=== PATIENT | male | born 1990 | race American Indian/Alaskan Native ===

== ENCOUNTER 2019-02-08 17:23 | Emergency (ER) | payer SELFPAY ==
[2019-02-08] MEDS ORDERED: NACL 0.9% 1000 ML 1,000 ML IV ONE (18:55)
--- NOTE | 2019-02-08 18:56 | Emergency Department Report ---
ED General Adult HPI - General Chief complaint: Seizure Stated complaint: SEIZURES Time Seen by Provider: 02/08/19 18:17 Source: patient, EMS (ems notes not available at time of chart dictation), RN notes reviewed Mode of arrival: Stretcher - History of Present Illness Initial comments: This is a 28-year-old gentleman. The patient is not known to this provider previously. The patient and family state that he has no chronic medical conditions. The patient states that he doesn't know what happened to him today. He has no recollection of today's events. Apparently, he passed out or lost consciousness. His mother reports that he was in his usual state of health today. The patient states that he has no headache, neck pain, chest pain abdominal pain or shortness of breath. He denies DVT, pulmonary embolus or risk factors. As per nursing documentation, the patient may have had a convulsive event. The patient is quite anxious, but insists that he is not having physical pain. -: Sudden Consistency: now resolved Improves with: none Worsens with: none - Related Data Allergies Allergy/AdvReac Type Severity Reaction Status Date / Time No Known Allergies Allergy Unverified 02/08/19 18:29 ED Review of Systems ROS: Stated complaint: SEIZURES Other details as noted in HPI Constitutional: malaise, weakness. denies: fever Eyes: denies: eye discharge Respiratory: denies: cough Cardiovascular: syncope Gastrointestinal: denies: abdominal pain, nausea, vomiting Genitourinary: denies: dysuria Musculoskeletal: denies: back pain Skin: denies: lesions Neurological: confusion, other (? seizure) Psychiatric: anxiety ED Past Medical Hx - Past Medical History Previous Medical History?: No - Surgical History Past Surgical History?: No - Social History Smoking Status: Never Smoker Substance Use Type: Marijuana ED Physical Exam - General Limitations: No Limitations General appearance: alert, anxious, in distress - Head Head exam: Present: atraumatic, normocephalic - Eye Eye exam: Present: normal appearance, PERRL, EOMI, other (visual acuity intact to finger counting, color perception, reading at a close distance). Absent: nystagmus - ENT ENT exam: Present: normal exam, normal orophraynx, mucous membranes moist, normal external ear exam - Neck Neck exam: Present: normal inspection, full ROM. Absent: tenderness, meningismus - Respiratory Respiratory exam: Present: normal lung sounds bilaterally. Absent: respiratory distress - Cardiovascular Cardiovascular Exam: Present: normal rhythm, bradycardia, normal heart sounds. Absent: systolic murmur, diastolic murmur, rubs, gallop - GI/Abdominal GI/Abdominal exam: Present: soft. Absent: distended, tenderness, guarding, rebound, rigid, pulsatile mass - Rectal Rectal exam: Present: deferred - Extremities Exam Extremities exam: Present: normal inspection, full ROM, other (2+ pulses noted in the bilateral upper, lower extremities. Compartments soft. No long bony tenderness. The pelvis is stable.). Absent: pedal edema, joint swelling, calf tenderness - Back Exam Back exam: Present: normal inspection, full ROM. Absent: tenderness, CVA tenderness (R), CVA tenderness (L), paraspinal tenderness, vertebral tenderness - Neurological Exam Neurological exam: Present: alert, oriented X3, other (Extraocular movements intact. Tongue midline. No facial droop. Facial sensation intact to light touch in the V1, V2, V3 distribution bilaterally. 5 and 5 strength in 4 extremities.. Sensation is intact to light touch in 4 extremities.). Absent: motor sensory deficit - Psychiatric Psychiatric exam: Present: anxious - Skin Skin exam: Present: warm, dry, intact, normal color. Absent: rash ED Course Vital Signs 02/08/19 02/08/19 02/08/19 18:15 19:30 20:00 Temperature 97.5 F L 98.5 F Pulse Rate 57 L 77 Pulse Rate [ 68 Lying] Respiratory 18 20 Rate Blood Pressure 130/78 Blood Pressure 142/79 [Left] Blood Pressure 116/68 [Lying] O2 Sat by Pulse 96 100 Oximetry 02/08/19 23:43 Temperature 98 F Pulse Rate 85 Pulse Rate [ Lying] Respiratory 17 Rate Blood Pressure Blood Pressure 131/72 [Left] Blood Pressure [Lying] O2 Sat by Pulse 99 Oximetry - Reevaluation(s) Reevaluation #1: 02/08/19 20:59 Differential diagnosis, including but not limited to: Orthostasis, vagal event, dehydration, hypoglycemia, intracranial injury, anxiety, seizure, pseudoseizure, conversion disorder, pulmonary embolism Assessment and plan: 28-year-old gentleman, with reported episode of seizure versus syncope, afebrile, with reassuring vital signs, not tachycardic, not hypoxic, as per family, no pulmonary embolus or DVT risk factors, low risk by well's criteria, perc negative He has a nonfocal motor examination with a GCS of 15. Noncontrast CT scan of the brain is negative. He is clinically sober.Patient is clinically sober at this time. The cervical spine is cleared through nexus and [place] c spine rule Screening laboratory studies suggest hypokalemia, dehydration, hemoconcentration, with a negative d-dimer. He is incidentally found to be hypoglycemic. Patient will be fed, and dexterous will be given. Repeat EKG and troponin pending. Patient low risk by heart score, low risk by RAJWINDER score. Reevaluation #2: 02/08/19 21:42 Discussed hypoglycemia with patient and family. Apparently, patient has not eaten breakfast, or lunch today. Apparently, he has not eaten at all today. IV fluids with dextrose are ordered, and the patient is given oral challenge. Reevaluation #3: 02/09/19 00:16 Patient is observed in this emergency room for over 7 hours without additional convulsive event or loss of consciousness. He is eating fast food, is walking with a steady gait, and appears quite comfortable. Additional vital signs appear to be unremarkable. He is not clinically intoxicated at this time. The patient is strongly advised to eat at least 3 meals per day, and to not drive or operate motor vehicles for the next 6 months. He verbalizes understanding. Discussed this with the patient, and family, with the patient's verbal permission. ED Medical Decision Making - Lab Data Result diagrams: 02/08/19 18:38 02/08/19 18:38 Vital Signs 02/08/19 02/08/19 02/08/19 18:15 19:30 20:00 Temperature 97.5 F L 98.5 F Pulse Rate 57 L 77 Pulse Rate [ 68 Lying] Respiratory 18 20 Rate Blood Pressure 130/78 Blood Pressure 142/79 [Left] Blood Pressure 116/68 [Lying] O2 Sat by Pulse 96 100 Oximetry Lab Results 02/08/19 02/08/19 02/08/19 Range/Units 18:38 18:38 18:38 WBC 11.8 H (4.5-11.0) K/mm3 RBC 6.24 H (3.65-5.03) M/mm3 Hgb 16.7 H (11.8-15.2) gm/dl Hct 49.9 H (35.5-45.6) % MCV 80 L (84-94) fl MCH 27 L (28-32) pg MCHC 33 (32-34) % RDW 15.1 (13.2-15.2) % Plt Count 264 (140-440) K/mm3 Lymph % (Auto) 13.3 L (13.4-35.0) % [place] % (Auto) 7.3 (0.0-7.3) % Eos % (Auto) 1.4 (0.0-4.3) % Baso % (Auto) 0.6 (0.0-1.8) % Lymph # 1.6 (1.2-5.4) K/mm3 [place] # 0.9 H (0.0-0.8) K/mm3 Eos # 0.2 (0.0-0.4) K/mm3 Baso # 0.1 (0.0-0.1) K/mm3 Seg Neutrophils % 77.4 H (40.0-70.0) % Seg Neutrophils # 9.1 H (1.8-7.7) K/mm3 PT 12.9 (12.2-14.9) Sec. INR 1.00 (0.87-1.13) APTT 27.3 (24.2-36.6) Sec. D-Dimer 135.00 (0-234) ng/mlDDU Sodium 136 L (137-145) mmol/L Potassium 3.4 L (3.6-5.0) mmol/L Chloride 96.6 L (98-107) mmol/L Carbon Dioxide 18 L (22-30) mmol/L Anion Gap 25 mmol/L BUN 7 L (9-20) mg/dL Creatinine 0.9 (0.8-1.5) mg/dL Estimated GFR > 60 ml/min BUN/Creatinine Ratio 8 % Glucose 64 L (75-100) mg/dL POC Glucose (70-105) Calcium 9.7 (8.4-10.2) mg/dL Magnesium (1.7-2.3) mg/dL Total Creatine Kinase (55-170) units/L Troponin T (0.00-0.029) ng/mL TSH (0.270-4.200) mlU/mL Urine Color (Yellow) Urine Turbidity (Clear) Urine pH (5.0-7.0) Ur Specific [place] (1.003-1.030) Urine Protein (Negative) mg/dL Urine Glucose (UA) (Negative) mg/dL Urine Ketones (Negative) mg/dL Urine Blood (Negative) Urine Nitrite (Negative) Urine Bilirubin (Negative) Urine Urobilinogen (<2.0) mg/dL Ur Leukocyte Esterase (Negative) Urine WBC (Auto) (0.0-6.0) /HPF Urine RBC (Auto) (0.0-6.0) /HPF Urine Mucus /HPF Acetaminophen (10.0-30.0) ug/mL Plasma/Serum Alcohol (0-0.07) % 02/08/19 02/08/19 02/08/19 Range/Units 18:38 19:25 19:25 WBC (4.5-11.0) K/mm3 RBC (3.65-5.03) M/mm3 Hgb (11.8-15.2) gm/dl Hct (35.5-45.6) % MCV (84-94) fl MCH (28-32) pg MCHC (32-34) % RDW (13.2-15.2) % Plt Count (140-440) K/mm3 Lymph % (Auto) (13.4-35.0) % [place] % (Auto) (0.0-7.3) % Eos % (Auto) (0.0-4.3) % Baso % (Auto) (0.0-1.8) % Lymph # (1.2-5.4) K/mm3 [place] # (0.0-0.8) K/mm3 Eos # (0.0-0.4) K/mm3 Baso # (0.0-0.1) K/mm3 Seg Neutrophils % (40.0-70.0) % Seg Neutrophils # (1.8-7.7) K/mm3 PT (12.2-14.9) Sec. INR (0.87-1.13) APTT (24.2-36.6) Sec. D-Dimer (0-234) ng/mlDDU Sodium (137-145) mmol/L Potassium (3.6-5.0) mmol/L Chloride (98-107) mmol/L Carbon Dioxide (22-30) mmol/L Anion Gap mmol/L BUN (9-20) mg/dL Creatinine (0.8-1.5) mg/dL Estimated GFR ml/min BUN/Creatinine Ratio % Glucose (75-100) mg/dL POC Glucose (70-105) Calcium (8.4-10.2) mg/dL Magnesium 2.00 (1.7-2.3) mg/dL Total Creatine Kinase 220 H (55-170) units/L Troponin T < 0.010 (0.00-0.029) ng/mL TSH 0.717 (0.270-4.200) mlU/mL Urine Color (Yellow) Urine Turbidity (Clear) Urine pH (5.0-7.0) Ur Specific [place] (1.003-1.030) Urine Protein (Negative) mg/dL Urine Glucose (UA) (Negative) mg/dL Urine Ketones (Negative) mg/dL Urine Blood (Negative) Urine Nitrite (Negative) Urine Bilirubin (Negative) Urine Urobilinogen (<2.0) mg/dL Ur Leukocyte Esterase (Negative) Urine WBC (Auto) (0.0-6.0) /HPF Urine RBC (Auto) (0.0-6.0) /HPF Urine Mucus /HPF Acetaminophen < 5.0 L (10.0-30.0) ug/mL Plasma/Serum Alcohol (0-0.07) % 02/08/19 02/08/19 02/08/19 Range/Units 19:25 19:39 20:41 WBC (4.5-11.0) K/mm3 RBC (3.65-5.03) M/mm3 Hgb (11.8-15.2) gm/dl Hct (35.5-45.6) % MCV (84-94) fl MCH (28-32) pg MCHC (32-34) % RDW (13.2-15.2) % Plt Count (140-440) K/mm3 Lymph % (Auto) (13.4-35.0) % [place] % (Auto) (0.0-7.3) % Eos % (Auto) (0.0-4.3) % Baso % (Auto) (0.0-1.8) % Lymph # (1.2-5.4) K/mm3 [place] # (0.0-0.8) K/mm3 Eos # (0.0-0.4) K/mm3 Baso # (0.0-0.1) K/mm3 Seg Neutrophils % (40.0-70.0) % Seg Neutrophils # (1.8-7.7) K/mm3 PT (12.2-14.9) Sec. INR (0.87-1.13) APTT (24.2-36.6) Sec. D-Dimer (0-234) ng/mlDDU Sodium (137-145) mmol/L Potassium (3.6-5.0) mmol/L Chloride (98-107) mmol/L Carbon Dioxide (22-30) mmol/L Anion Gap mmol/L BUN (9-20) mg/dL Creatinine (0.8-1.5) mg/dL Estimated GFR ml/min BUN/Creatinine Ratio % Glucose (75-100) mg/dL POC Glucose 87 (70-105) Calcium (8.4-10.2) mg/dL Magnesium (1.7-2.3) mg/dL Total Creatine Kinase (55-170) units/L Troponin T (0.00-0.029) ng/mL TSH (0.270-4.200) mlU/mL Urine Color Yellow (Yellow) Urine Turbidity Clear (Clear) Urine pH 5.0 (5.0-7.0) Ur Specific [place] 1.020 (1.003-1.030) Urine Protein 30 mg/dl (Negative) mg/dL Urine Glucose (UA) Neg (Negative) mg/dL Urine Ketones Tr (Negative) mg/dL Urine Blood Neg (Negative) Urine Nitrite Neg (Negative) Urine Bilirubin Neg (Negative) Urine Urobilinogen < 2.0 (<2.0) mg/dL Ur Leukocyte Esterase Neg (Negative) Urine WBC (Auto) 1.0 (0.0-6.0) /HPF Urine RBC (Auto) 2.0 (0.0-6.0) /HPF Urine Mucus 1+ /HPF Acetaminophen (10.0-30.0) ug/mL Plasma/Serum Alcohol < 0.01 (0-0.07) % - EKG Data -: EKG Interpreted by Ri EKG shows normal: sinus rhythm Rate: normal - EKG Data When compared to previous EKG there are: previous EKG unavailable 02/08/19 20:58 The EKG is a sinus rhythm, 67 bpm, normal axis, QTC prolonged, no evidence of ST elevation myocardial infarction, no evidence of Brugada syndrome, there is no prior for comparison, the EKG is unremarkable. - Radiology Data Radiology results: report reviewed, image reviewed X-ray the chest is negative for acute disease. CT scan of the brain is negative for acute disease. Critical care attestation.: If time is entered above; I have spent that time in minutes in the direct care of this critically ill patient, excluding procedure time. ED Disposition Clinical Impression: History of convulsions, History of hypoglycemia Disposition: -01 TO HOME OR SELFCARE Is pt being admited?: No Does the pt Need Aspirin: No Condition: Stable Instructions: Non-diabetic Hypoglycemia (ED) Additional Instructions: Do not drive or operate motor vehicles for the next 6 months. Follow up with a primary care doctor or warehouse distribution specialist within the next 7-10 days. Make certain to eat 3-5 meals every day. Not eating on a regular basis may cause recurrent loss of consciousness, and recurrent low blood sugar levels. Low blood sugar levels in turn may cause seizure, , disability, paralysis, p ermanent loss of quality of life. Return to the emergency room right away with new, worsening or different symptoms, or symptoms not present on the initial emergency room evaluation. Please note that urine toxicology screen demonstrated the presence of cannabis, marijuana. Strongly recommend patient does not consume marijuana, or be exposed to it in a secondhand capacity, as marijuana itself may cause loss of consciousness and convulsions. Referrals: [facility] [Provider Group] - 7-10 days JERONIMO HERNANDEZ MD [Primary Care Provider] - 7-10 days [facility] [Provider Group] - 7-10 days
[2019-02-08 19:20] LABS: Partial Thromboplastin Time 27.3 Sec. (24.2-36.6)
--- NOTE | 2019-02-08 19:30 | XRay Report ---
CHEST 2 VIEWS INDICATION / CLINICAL INFORMATION: altered. COMPARISON: None available. FINDINGS: SUPPORT DEVICES: None. HEART / MEDIASTINUM: No significant abnormality. LUNGS / PLEURA: No significant pulmonary or pleural abnormality. No pneumothorax. ADDITIONAL FINDINGS: No significant additional findings. IMPRESSION: 1. No acute findings. Signer Name: Levon Farrell MD Signed: 02/08/2019 7:26 PM Workstation Name: [id number]
[2019-02-08 19:40] LABS: Basophils # (Auto) 0.1 K/mm3 (0.0-0.1); Basophils % (Auto) 0.6 % (0.0-1.8); Eosinophils # (Auto) 0.2 K/mm3 (0.0-0.4); Eosinophils % (Auto) 1.4 % (0.0-4.3); Hematocrit 49.9 % (35.5-45.6); Hemoglobin 16.7 gm/dl (11.8-15.2); Lymphocytes # (Auto) 1.6 K/mm3 (1.2-5.4); Lymphocytes % (Auto) 13.3 % (13.4-35.0); Mean Corpuscular HGB Conc 33 % (32-34); Mean Corpuscular Volume 80 fl (84-94); Monocytes # (Auto) 0.9 K/mm3 (0.0-0.8); Monocytes % (Auto) 7.3 % (0.0-7.3); Platelet Count 264 K/mm3 (140-440); Red Blood Count 6.24 M/mm3 (3.65-5.03); Red Cell Distribution Width 15.1 % (13.2-15.2)
[2019-02-08 19:47] LABS: BUN/Creatinine Ratio 8; Blood Urea Nitrogen 7 mg/dL (9-20); Calcium 9.7 mg/dL (8.4-10.2); Hemolysis Index 22
--- NOTE | 2019-02-08 20:05 | Cat Scan Report ---
CT BRAIN: 02/08/2019 INDICATION / CLINICAL INFORMATION: Altered mental status. COMPARISON: None available. FINDINGS: BRAIN/INTRACRANIAL STRUCTURES: Unenhanced CT images of the brain demonstrate no evidence of acute int racranial abnormality. Ventricles and sulci are normal in size and shape. There is no evidence of hemorrhage or mass. There are no abnormal extra-axial fluid collections. EXTRACRANIAL STRUCTURES: Unremarkable. IMPRESSION: Negative unenhanced CT of the brain. All CT scans at this location are performed using dose reduction to ALARA by means of automated expos ure control. Signer Name: Luis F Chan MD Signed: 02/08/2019 8:01 PM Workstation Name: [id number]
[2019-02-08] MEDS ORDERED: D50W (25GM) Vial IV PRN (20:53)
[2019-02-08] MEDS ORDERED: D50W (25GM) Syringe IV ONE (20:53)
[2019-02-08 20:54] LABS: Bilirubin,Urine NEG (Negative); Blood,Urine NEG (Negative); Color,Urine Yellow (Yellow); Mucus,Urine 1+ /HPF; Urobilinogen,Urine < 2.0 mg/dL (<2.0)
[2019-02-08] MEDS ORDERED: K-DUR PO ONE (20:55)
[2019-02-08 21:02] LABS: Amphetamine Screen,Urine PRESUMPTIVE NEGATIVE; Benzodiazepines Screen,Urine PRESUMPTIVE NEGATIVE; Cocaine Screen,Urine PRESUMPTIVE NEGATIVE; Methadone Screen,Urine PRESUMPTIVE NEGATIVE; Opiate Screen,Urine PRESUMPTIVE NEGATIVE
[2019-02-08 21:14] LABS: Cannabinoid Screen,Urine PRESUMPTIVE POSITIVE
[2019-02-08] MEDS: KCL 10MEQ/100ML 10 MEQ/100 ML BAG IV SCH ×2 (21:39→22:40)
[2019-02-08] MEDS ORDERED: D5NS 1,000 ML IV SCH (22:00)
[2019-02-09 01:29] VITALS: BP 116/78
== END 2019-02-09 01:06 | disposition home or self-care (01) ==
LOC: ED 17:23
DX: R56.9 Unspecified convulsions (principal); F12.10 Cannabis abuse, uncomplicated
CPT/HCPCS: 36415; 70450; 71046; 80048; 80307; 81001; 82550; 82962; 83735; 84443; 84484; 85025; 85379; 85610; 85730; 93005; 93010; 96361; 96374; 99285; J3480; J7030; J7042; 80320; G0480